=== PATIENT | female | born 1995 | race Two or more races ===

== ENCOUNTER 2022-01-31 11:57 | Emergency (ER) | payer OTHER ==
[~2022-01-31] VITALS: Ht 175.3 cm; Wt 89.4 kg
[2022-01-31] MEDS ORDERED: BUPROPION XL450 MG (12:08)
[2022-01-31] MEDS ORDERED: KAPVAY0.1 MG PO (12:08)
[2022-01-31] MEDS ORDERED: PEPCID AC10 MG PO (12:09)
[2022-01-31] MEDS ORDERED: FISH OIL 1,001000 MG PO (12:09)
== END 2022-01-31 17:02 | disposition home or self-care (01) ==
LOC: ER 11:57
DX: S93.411A Sprain of calcaneofibular ligament of right ankle, initial encounter (principal); Z88.6 Allergy status to analgesic agent; X50.9XXA Other and unspecified overexertion or strenuous movements or postures, initial encounter; Y93.9 Activity, unspecified; Y92.9 Unspecified place or not applicable

== ENCOUNTER 2022-04-19 11:13 | Emergency (ER) | payer OTHER ==
[~2022-04-19] VITALS: Ht 175.3 cm; Wt 89.4 kg
[~2022-04-19 11:13] MED LIST: BUPROPION XL450 MG; FISH OIL 1,001000 MG PO; KAPVAY0.1 MG PO; PEPCID AC10 MG PO
[2022-04-19] MEDS ORDERED: ALLERGY RELIEF10 M3 PO (11:52)
[2022-04-19] MEDS ORDERED: MEDROLPACK PO (15:11)
[2022-04-19] MEDS ORDERED: AMOX-CLAV 875-1 EACH PO (15:11)
[2022-04-19] MEDS ORDERED: TUSSI PRES-B L480 ML PO (15:11)
== END 2022-04-19 15:23 | disposition home or self-care (01) ==
LOC: ER 11:13
DX: J06.9 Acute upper respiratory infection, unspecified (principal); Z20.822 Contact with and (suspected) exposure to COVID-19; Z88.6 Allergy status to analgesic agent

== ENCOUNTER 2022-11-10 10:39 | Outpatient (CLI) | payer OTHER ==
[~2022-11-10 10:39] MED LIST changes: +ALLERGY RELIEF10 M3 PO; +AMOX-CLAV 875-1 EACH PO; +MEDROLPACK PO; +TUSSI PRES-B L480 ML PO
== END 2022-11-10 10:59 | disposition home or self-care (01) ==
LOC: MAMO-SONO 10:39
PROVIDERS: ATTEND Obstetrics & Gynecology Gynecology
DX: N64.4 Mastodynia (principal); N95.1 Menopausal and female climacteric states; Z12.31 Encounter for screening mammogram for malignant neoplasm of breast

== ENCOUNTER 2024-05-29 10:04 | Outpatient (CLI) | payer OTHER | END 2024-05-29 10:20 | disposition home or self-care (01) | LOC: MAMO-SONO 10:04 | PROVIDERS: ATTEND Obstetrics & Gynecology Gynecology | DX: N64.4 Mastodynia (principal); Z12.31 Encounter for screening mammogram for malignant neoplasm of breast ==

== ENCOUNTER 2025-05-23 09:36 | Outpatient (CLI) | payer OTHER | END 2025-05-23 09:37 | disposition home or self-care (01) | LOC: TOM 09:36 | PROVIDERS: ATTEND Obstetrics & Gynecology Gynecology | DX: E27.9 Disorder of adrenal gland, unspecified (principal) ==

== ENCOUNTER 2025-06-05 08:17 | Outpatient (CLI) | payer OTHER | END 2025-06-05 08:20 | disposition home or self-care (01) | LOC: MAMO-SONO 08:17 | PROVIDERS: ATTEND Obstetrics & Gynecology Gynecology | DX: N64.4 Mastodynia (principal); Z12.31 Encounter for screening mammogram for malignant neoplasm of breast ==